=== PATIENT | female | born 1975 | race African-American/Black ===

== ENCOUNTER 2022-08-07 18:37 | Emergency (ER) | payer MEDICAID ==
[~2022-08-07] VITALS: Ht 157.5 cm; Wt 79.0 kg
[2022-08-07 18:45] VITALS: BP 123/74
[2022-08-07] MEDS ORDERED: PRED20TA2 PO (20:32)
== END 2022-08-07 22:41 | disposition home or self-care (01) ==
LOC: ER 18:37
DX: H69.91 Unspecified Eustachian tube disorder, right ear (principal)